=== PATIENT | female | born 1940 | race Caucasian/White ===

== ENCOUNTER 2017-02-06 21:25 | Emergency (ER) | payer MEDICARE ==
[2017-02-06 21:51] LABS: Bilirubin Negative (Negative); Blood, Urine Negative (Negative); Glucose, Urine (Dipstick) Negative (Negative); Ketone, Urine Trace mg/dL (Negative); Nitrite Negative (Negative); Protein, Urine (Dipstick) Negative (Neg-Trace)
[2017-02-06 22:06] LABS: Bacteria/HPF 2+ HPF (None Seen); Hyaline Casts/LPF 0-3 HYALINE CAST LPF (0-3 Hyaline)
[2017-02-06 22:12] LABS: #Basophils 0.1 thou/uL (0.0-0.2); #Eosinphils 0.5 thou/uL (0.0-0.7); #Monocytes 0.7 thou/uL (0.11-0.59); #Neutrophils 3.9 thou/uL (1.40-6.50); %Basophils 1.3 % (0.0-1.0); %Eosinophils 5.5 % (0.0-10.0); %Lymphocytes 36.8 % (21.0-51.0); %Monocytes 8.9 % (0.0-10.0); Hematocrit 35.6 % (36.0-47.0); Mean Platelet Volume 7.5 fL (7.4-10.4); Red Blood Cell (RBC) Count 3.94 mill/uL (4.20-5.40); White Blood Cell (WBC) Count 8.2 thou/uL (4.8-10.8)
[2017-02-06 22:14] LABS: RBC/HPF 0-3 HPF (0-3)
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
[2017-02-06 22:34] LABS: ALT (SGPT) 28 U/L (8-55); AST (SGOT) 29 U/L (5-34); Alkaline Phosphatase 42 U/L (40-150); Anion Gap 16 mmol/L (10-20); BUN (Urea Nitrogen) 16 mg/dL (9.8-20.1); Bilirubin, Total 0.2 mg/dL (0.2-1.2); Calc. Creatinine Clearance 0 mL/min (70-130); Calcium 8.9 mg/dL (7.8-10.44); Carbon Dioxide 22 mmol/L (23-31); Chloride 108 mmol/L (98-107); Estimated GFR-MDRD 87; Protein, Total 6.8 g/dL (6.0-8.3)
[2017-02-06 22:38] LABS: Troponin I Less than 0.010 ng/mL (< 0.028)
== END 2017-02-06 22:49 | disposition home or self-care (01) ==
LOC: ERS 21:25
DX: S40.012A Contusion of left shoulder, initial encounter (principal); I10 Essential (primary) hypertension; F41.9 Anxiety disorder, unspecified; E78.00 Pure hypercholesterolemia, unspecified; V89.2XXA Person injured in unspecified motor-vehicle accident, traffic, initial encounter
CPT/HCPCS: 36415; 71010; 80053; 81003; 81015; 82553; 84484; 85025; 87086; 93005

== ENCOUNTER 2017-07-13 09:10 | Outpatient (CLI) | payer MEDICARE | END 2017-07-13 09:11 | disposition home or self-care (01) | LOC: BICMAMMO 09:10 | PROVIDERS: ATTEND Obstetrics & Gynecology | DX: Z12.31 Encounter for screening mammogram for malignant neoplasm of breast (principal); Z85.3 Personal history of malignant neoplasm of breast; Z85.89 Personal history of malignant neoplasm of other organs and systems | CPT/HCPCS: 77063; 77067 ==

== ENCOUNTER 2017-12-01 09:00 | Outpatient (CLI) | payer MEDICARE | END 2017-12-01 09:01 | disposition home or self-care (01) | LOC: CTENTCT 09:00 | PROVIDERS: ATTEND Specialist | DX: J32.3 Chronic sphenoidal sinusitis (principal) | CPT/HCPCS: 70486 ==

== ENCOUNTER 2018-07-14 10:57 | Outpatient (CLI) | payer MEDICARE | END 2018-07-14 10:58 | disposition home or self-care (01) | LOC: BICMAMMO 10:57 | PROVIDERS: ATTEND Internal Medicine | DX: Z12.31 Encounter for screening mammogram for malignant neoplasm of breast (principal); Z85.89 Personal history of malignant neoplasm of other organs and systems; Z80.3 Family history of malignant neoplasm of breast | CPT/HCPCS: 77063; 77067 ==

== ENCOUNTER 2020-02-05 08:54 | Outpatient (CLI) | payer MEDICARE ==
--- NOTE | 2020-02-05 09:31 | BD ---
EXAM: Bone densitometry using DEXA HISTORY: 79 yo female. Screening for postmenopausal osteoporosis FINDINGS: L1--bone mineral density 0.990 g/sq cm; T score 0.0 ; Z score 2.4 L2--bone mineral density 1.082 g/sq cm; T score 0.5 ; Z score 3.1 L3--bone mineral density 1.151 g/sq cm; T score 0.6 ; Z score 2.4 L4--bone mineral density 1.143 g/sq cm; T score 0.7 ; Z score 3.6 Total L1-L4--bone mineral density 1.096 g/sq cm; T score 0.4 ; Z score 3.1 Left femoral neck--bone mineral density0.755; T score -0.8 ; Z score 1.5 Total proximal left femur--bone mineral density 1.009; T score 0.6 ; Z score 2.6 IMPRESSION: Normal BMD
== END 2020-02-05 08:55 | disposition home or self-care (01) ==
LOC: BICMAMMO 08:54
PROVIDERS: ATTEND Internal Medicine Rheumatology
DX: M81.0 Age-related osteoporosis without current pathological fracture (principal)
CPT/HCPCS: 77080

== ENCOUNTER 2020-12-13 22:14 | Emergency (ER) | payer MEDICARE ==
[2020-12-13 23:25] LABS: Anion Gap 11 mmol/L (10-20); BUN (Urea Nitrogen) 12 mg/dL (9.8-20.1); Calc. Creatinine Clearance 0 mL/min (70-130); Calcium 9.3 mg/dL (7.8-10.44); Carbon Dioxide 26 mmol/L (23-31); Chloride 103 mmol/L (98-107); Glucose 144 mg/dL (83-110); Potassium 3.4 mmol/L (3.5-5.1); Sodium 137 mmol/L (136-145)
== END 2020-12-14 00:32 | disposition home or self-care (01) ==
LOC: ERS 22:14
DX: I10 Essential (primary) hypertension (principal); Z79.899 Other long term (current) drug therapy
CPT/HCPCS: 36415; 80048; 99283

== ENCOUNTER 2021-01-02 20:49 | Emergency (ER) | payer MEDICARE | END 2021-01-03 00:46 | disposition home or self-care (01) | LOC: ERS 20:49 | DX: I10 Essential (primary) hypertension (principal); E78.00 Pure hypercholesterolemia, unspecified | CPT/HCPCS: 99283 ==

== ENCOUNTER 2022-02-20 09:22 | Outpatient (CLI) | payer MEDICARE ==
[2022-02-20] MEDS ORDERED: Iopamidol 370 76% 100 ML VIAL ONE (09:23)
== END 2022-02-20 09:23 | disposition home or self-care (01) ==
LOC: CT 09:22
PROVIDERS: ATTEND Thoracic Surgery (Cardiothoracic Vascular Surgery)
DX: R09.89 Other specified symptoms and signs involving the circulatory and respiratory systems (principal); I65.22 Occlusion and stenosis of left carotid artery; J35.9 Chronic disease of tonsils and adenoids, unspecified
CPT/HCPCS: 70498; 82565; Q9967

== ENCOUNTER 2022-12-21 09:02 | Outpatient (CLI) | payer MEDICARE | END 2022-12-21 09:03 | disposition home or self-care (01) | LOC: ULT 09:02 | PROVIDERS: ATTEND Obstetrics & Gynecology | DX: N39.0 Urinary tract infection, site not specified (principal); R93.41 Abnormal radiologic findings on diagnostic imaging of renal pelvis, ureter, or bladder | CPT/HCPCS: 76770 ==

== ENCOUNTER 2023-04-02 08:44 | Outpatient (CLI) | payer MEDICARE ==
[2023-04-02] MEDS ORDERED: Iopamidol 370 76% 100 ML VIAL ONE (13:34)
== END 2023-04-02 08:45 | disposition home or self-care (01) ==
LOC: CT 08:44
PROVIDERS: ATTEND Thoracic Surgery (Cardiothoracic Vascular Surgery)
DX: I65.22 Occlusion and stenosis of left carotid artery (principal)
CPT/HCPCS: 70498; 82565

== ENCOUNTER 2023-04-22 13:04 | Outpatient (CLI) | payer MEDICARE ==
[2023-04-22 14:46] LABS: Hematocrit 34.5 % (34.9-44.5); Hemoglobin 11.3 g/dL (12.0-15.5); Mean Corpuscular HGB CONC 32.8 g/dL (32.0-36.0); Mean Corpuscular Hemoglobin 28.9 pg (27.0-33.0); Mean Corpuscular Volume 88.2 fl (81.6-98.3); Mean Platelet Volume 10.8 fl (7.4-10.4); Platelet Count 247 10x3/uL (150-450); RBC Distribution Width 13.5 % (11.5-14.5); Red Blood Cell (RBC) Count 3.91 10x6/uL (3.90-5.03)
[2023-04-22 15:13] LABS: Anion Gap 14 mmol/L (10-20); BUN (Urea Nitrogen) 17 mg/dL (9.8-20.1); Calc. Creatinine Clearance 0 mL/min (70-130); Calcium 8.9 mg/dL (7.8-10.44); Carbon Dioxide 26 mmol/L (23-31); Chloride 103 mmol/L (98-107); Estimated GFR 75; Glucose 114 mg/dL (83-110); Potassium 3.9 mmol/L (3.5-5.1); Sodium 139 mmol/L (136-145)
== END 2023-04-22 13:05 | disposition home or self-care (01) ==
LOC: LABBT 13:04
PROVIDERS: ATTEND Thoracic Surgery (Cardiothoracic Vascular Surgery)
DX: Z01.818 Encounter for other preprocedural examination (principal); I65.22 Occlusion and stenosis of left carotid artery
CPT/HCPCS: 80048; 85027; 93005; 93010

== ENCOUNTER 2023-04-22 16:30 | Inpatient (IN) | payer MEDICARE ==
[2023-04-22 14:06] VITALS: BMI 26.9
[2023-04-23] MEDS ORDERED: Protamine Sulfate 50 MG/5 ML VIAL ONE (06:16)
[2023-04-23] MEDS ORDERED: Bupivacaine PF 0.5% 30 ML VIAL ONE (06:16)
[2023-04-23] MEDS ORDERED: Heparin 5,000 UNITS/ML VIAL ONE (06:16)
[2023-04-23] MEDS ORDERED: EPINEPHrine 1 MG/ML VIAL ONE (06:16)
[2023-04-23] MEDS ORDERED: fentaNYL PF 100 MCG/2 ML SYRINGE ONE (06:30)
[2023-04-23] MEDS ORDERED: fentaNYL 50 mcg/mL 1 mL Vial ONE ×2 (06:30→11:26)
[2023-04-23] MEDS ORDERED: PROPOFOL 20 ML ONE ×2 (06:30→08:51)
[2023-04-23] MEDS ORDERED: Sodium Chloride 0.9% 100 ML ONE (07:27)
[2023-04-23] MEDS ORDERED: Midazolam HCl 2 mg/2 ml Vial ONE (07:27)
[2023-04-23] MEDS ORDERED: CEFAZOLIN 2 GM VIAL ONE (07:27)
[2023-04-23] MEDS ORDERED: Dexamethasone 20 MG/5 ML VIAL ONE (07:40)
[2023-04-23] MEDS ORDERED: Ondansetron PF 4 MG/2 ML Vial ONE ×2 (07:40→08:07)
[2023-04-23] MEDS ORDERED: Rocuronium Bromide 10 MG/ML (10ML VIAL) ONE (07:40)
[2023-04-23] MEDS ORDERED: Lidocaine 1% PF 5 ML VIAL ONE (07:40)
[2023-04-23] MEDS ORDERED: Labetalol HCl 100 MG/20 ML VIAL ONE (07:40)
[2023-04-23] MEDS ORDERED: PHENYLEPHRINE-NS 100 MCG/ML 10 ML SYRINGE ONE (07:40)
[2023-04-23] MEDS ORDERED: PROPOFOL 200 MG/20 ML VIAL ONE (07:40)
[2023-04-23] MEDS ORDERED: Heparin 10,000 UNITS/ 10 ML VIAL ONE (08:06)
[2023-04-23] MEDS ORDERED: Dexamethasone 4 mg/ml Vial ONE (08:08)
[2023-04-23] MEDS ORDERED: SUGAMMADEX SODIUM 200 MG/2 ML VIAL ONE (08:31)
[2023-04-23] MEDS ORDERED: Nitroglycerin 2% Ointment 1 INCH/1 GM Packet ONE (08:34)
[2023-04-23] MEDS ORDERED: Promethazine HCl 25 MG/ML VIAL IM PRN ×2 (09:36→12:00)
[2023-04-23] MEDS ORDERED: Ipratropium/Albuterol 3 ML NEB NEB PRN (09:36)
[2023-04-23] MEDS ORDERED: Nitroglycerin 50 MG/250 ML BOT 250 ML IVPB PRN (09:36)
[2023-04-23] MEDS ORDERED: hydrALAZINE 20 MG/ML VIAL SLOW IVP PRN (09:36)
[2023-04-23] MEDS ORDERED: fentaNYL 50 mcg/mL 1 mL Vial SLOW IVP PRN (09:36)
[2023-04-23] MEDS ORDERED: Insulin Regular 300 UNITS/3 ML VIAL SC PRN (09:36)
[2023-04-23] MEDS ORDERED: Acetaminophen 325 MG TAB PO PRN (09:36)
[2023-04-23] MEDS ORDERED: traMADol HCl 50 MG TAB PO PRN (09:36)
[2023-04-23] MEDS ORDERED: Ondansetron PF 4 MG/2 ML Vial IVP PRN (09:36)
[2023-04-23] MEDS ORDERED: Phenylephrine 40 MG/NS 250 ML 40 MG in Premix 1 BAG IVPB PRN (09:54)
[2023-04-23] MEDS ORDERED: Amlodipine 10 MG TAB PO SCH (10:00)
[2023-04-23] MEDS ORDERED: Hydroxychloroquine Sulfate 200 MG TAB PO SCH (10:00)
[2023-04-23] MEDS ORDERED: Carvedilol 6.25 MG TAB PO SCH (10:00)
[2023-04-23] MEDS ORDERED: Aspirin Chewable 81 MG TAB PO SCH (10:00)
[2023-04-23] MEDS ORDERED: PARoxetine 20 MG TAB PO SCH (10:15)
[2023-04-23] MEDS ORDERED: Ondansetron HCl/PF 4 MG/2 ML Vial IVP PRN (12:00)
[2023-04-23] MEDS: CEFAZOLIN 2 GM in Sodium Chloride 0.9% 100 ML IVPB SCH (17:57)
[2023-04-23] MEDS: Sodium Chloride 0.9% 1,000 ML IV SCH ×2 (18:03→20:46)
[2023-04-23] MEDS: Ipratropium/Albuterol 3 ML NEB NEB SCH ×2 (18:17→19:00)
[2023-04-23] MEDS ORDERED: metFORMIN XR 500 MG ER.TAB PO SCH (21:00)
[2023-04-23] MEDS ORDERED: Rosuvastatin 10 MG TAB PO SCH (21:00)
[2023-04-24] MEDS: CEFAZOLIN 2 GM in Sodium Chloride 0.9% 100 ML IVPB SCH ×2 (00:15→07:50)
[2023-04-24] MEDS: Ipratropium/Albuterol 3 ML NEB NEB SCH (02:21)
[2023-04-24 07:52] VITALS: BP 165/83
[2023-04-24] MEDS: Sodium Chloride 0.9% 1,000 ML IV SCH ×2 (07:52→07:53)
[2023-04-24 08:36] VITALS: TEMP 97.9
[2023-04-24] MEDS ORDERED: Aspirin Chewable 81 MG TAB PO SCH (09:00)
[2023-04-24] MEDS ORDERED: Amlodipine 10 MG TAB PO SCH (09:00)
[2023-04-24] MEDS ORDERED: Hydroxychloroquine Sulfate 200 MG TAB PO SCH (09:00)
[2023-04-24] MEDS ORDERED: PARoxetine 20 MG TAB PO SCH (09:00)
[2023-04-24] MEDS ORDERED: Carvedilol 6.25 MG TAB PO SCH (09:00)
[2023-04-24] MEDS ORDERED: FLU VACC QS2023(65UP)/MF59C/PF 60 MCG/0.5 ML SYRINGE IM ONE (09:00)
[2023-04-24] MEDS ORDERED: Clopidogrel Bisulfate 75 MG TAB PO SCH (09:00)
== END 2023-04-24 09:15 | disposition home or self-care (01) | DRG 36 ==
LOC: SURG A 04-23 05:55 → EDSTATUS 04-23 16:30 → CCU 04-23 17:15
PROVIDERS: ADMIT Thoracic Surgery (Cardiothoracic Vascular Surgery); ATTEND Thoracic Surgery (Cardiothoracic Vascular Surgery)
PROC: 037L3DZ Dilation of Left Internal Carotid Artery with Intraluminal Device, Percutaneous Approach (ICD-10-PCS; principal; 2023-04-23)
DX: I65.22 Occlusion and stenosis of left carotid artery (principal); I10 Essential (primary) hypertension; E78.5 Hyperlipidemia, unspecified; F41.9 Anxiety disorder, unspecified; Z79.899 Other long term (current) drug therapy; Z88.1 Allergy status to other antibiotic agents; Z88.8 Allergy status to other drugs, medicaments and biological substances
CPT/HCPCS: 36416; C1725; C1769; C1876; C1884; J0171; J1100; J1644; J1815; J2250; J2405; J2704; J2720; J3010; J3490; J7050; S0020

== ENCOUNTER 2023-12-13 08:21 | Outpatient (CLI) | payer MEDICARE | END 2023-12-13 08:22 | disposition home or self-care (01) | LOC: BICMAMMO 08:21 | PROVIDERS: ATTEND Internal Medicine Rheumatology | DX: M81.0 Age-related osteoporosis without current pathological fracture (principal); M85.851 Other specified disorders of bone density and structure, right thigh; M85.852 Other specified disorders of bone density and structure, left thigh | CPT/HCPCS: 77080 ==